=== PATIENT | male | born 1995 | race Caucasian/White ===

== ENCOUNTER 2017-05-13 03:47 | Emergency (ER) | payer BC ==
[~2017-05-13] VITALS: Ht 172.7 cm; Wt 81.6 kg
[2017-05-13 04:00] VITALS: BP 91/51
--- NOTE | 2017-05-13 04:18 | Emergency Room Report ---
History of Present Illness General Chief Complaint: Alcohol Intoxication Source: EMS Present Illness HPI This 21-year-old male with no known medical problem. He presents with chief complaint alcohol intoxication. He was with his friend and that been drinking heavily tonight. He was very intoxicated and was not very responsive so they called 911. Patient has some vomiting. No trauma. No drug use per EMS. Rest of history is limited because of his intoxication. There was no trauma. Allergies: Coded Allergies: No Known Allergies (Unverified , 05/13/17) Patient History Past Medical History: see triage record, old chart reviewed Past Surgical History: none Pertinent Family History: none Social History: Reports: alcohol use Immunizations: other Reviewed Nursing Documentation: PMH: Agreed, PSxH: Agreed Nursing Documentation-PMH Past Medical History Deferred: Patient Unconscious Review of Systems All Other Systems: limited - Due to intoxication Physical Exam Vital Signs Date Time Temp Pulse Resp B/P (MAP) Pulse Ox O2 Delivery O2 Flow Rate FiO2 05/13/17 03:45 98.1 64 150/120 99 Room Air vitals initially with high blood pressure. Repeat normal Sp02 EP Interpretation: reviewed, normal General Appearance: well appearing, no apparent distress, alert Head: normocephalic, atraumatic Eyes: bilateral eye PERRL, bilateral eye EOMI ENT: hearing grossly normal, normal pharynx Neck: full range of motion, supple, no meningismus Respiratory: chest non-tender, lungs clear, normal breath sounds Cardiovascular #1: regular rate, rhythm, no murmur Gastrointestinal: normal bowel sounds, non tender, no mass, no organomegaly, no bruit, non-distended Musculoskeletal: back normal, normal range of motion Neurologic: grossly normal Psychiatric: mood/affect normal Skin: warm/dry Medical Decision Making Diagnostic Impression: Primary Impression: Acute alcoholic intoxication Qualified Codes: F10.929 - Alcohol use, unspecified with intoxication, unspecified ER Course This patient presents with alcohol intoxication. No trauma to warrant CT scan or x-rays. We'll observe until clinical sobriety. Last Vital Signs Date Time Temp Pulse Resp B/P (MAP) Pulse Ox O2 Delivery O2 Flow Rate FiO2 05/13/17 03:45 98.1 64 150/120 99 Room Air Status: improved Disposition: HOME, SELF-CARE Condition: Stable Referrals: NOT CHOSEN IPA/MD,REFERRING (PCP) Patient Instructions: Alcohol Intoxication, [id number] Additional Instructions: abstain from drinking to excess Followup with your doctor in 7 days. Return if worse. OMID ANTON M.D. May 13, 2017 04:18
[2017-05-13 08:07] VITALS: BP 122/62
[2017-05-13 08:24] VITALS: BP 122/65
== END 2017-05-13 08:26 | disposition home or self-care (01) ==
LOC: EDBD 03:47 → EMR 04:08
DX: F10.129 Alcohol abuse with intoxication, unspecified (principal)
CPT/HCPCS: 36415; 99284; G0480; 80329